=== PATIENT | male | born 1995 | race Caucasian/White ===

== ENCOUNTER 2017-09-24 04:28 | Emergency (ER) | payer BC, OTHER ==
[~2017-09-24] VITALS: Ht 195.6 cm; Wt 72.8 kg
[2017-09-24 04:37] VITALS: TEMP 36.7; Ht 195.6 cm; Wt 72.8 kg
[2017-09-24] MEDS ORDERED: XYLOCAINE 1%/SOD BICARB 20 ML VIAL INFIL ONE (04:45)
[2017-09-24 05:59] VITALS: BP 135/84; PULSE 99; O2SAT 96
[2017-09-24] MEDS ORDERED: CEPH500C2 PO (06:07)
[2017-09-24] MEDS ORDERED: CEPHALEXIN 500MG HOME PACK 1 EA BTL PO ONE (06:15)
--- NOTE | 2017-09-24 06:46 | EMERGENCY ROOM VISIT NOTE ---
History First contact with patient: 04:37 Chief Complaint: LACERATION/CUT (SUT/DERMABOND) Stated Complaint: BLEEING EAR-HIT IN THE HEAD Nursing Triage Summary: left ear Laceration. History of Present Illness The patient is a 22 year old male who presents to the Emergency Room with complaints of head injury who has been drinking tonight who sustained a left earlobe laceration when he slipped and fell hitting his head on the banister. Tetanus is current. Patient denies drug use, loss of consciousness, neck pain, facial pain, dental pain, chest pain, dyspnea, abdominal pain or any other medical complaints. Review of Systems An 10 system review of systems was completed with positives and pertinent negatives listed in the HPI. Past Medical/Surgical History None Social History Smoking Status: Never Smoker Smokeless Tobacco Use: No Alcohol Use: occasionally Drug Use: none Marital Status: in relationship Current/Historical Medications Scheduled Cephalexin Monohydrate (Keflex), 500 MG PO QID Physical Exam Vital Signs Date Time Temp Pulse Resp B/P (MAP) Pulse Ox O2 Delivery O2 Flow Rate FiO2 09/24/17 05:59 99 16 135/84 96 Room Air 09/24/17 04:37 36.7 116 20 135/84 95 Room Air Physical Exam PHYSICAL EXAM: VITALS: Vitals are noted on the nurse's note and reviewed by myself. Vital signs stable. GENERAL: Pleasant male with EtOH odor, in no acute distress, nondiaphoretic, well-developed well-nourished. SKIN: Left earlobe laceration is jagged to the intratragic notch with skin avulsion, the rest of skin was without obvious lacerations or abrasions. Capillary reflex less than 2 seconds. HEAD: Normocephalic atraumatic. EARS: External auditory canals clear, tympanic membranes pearly crandall without erythema or effusion bilaterally. No hemotympanums. No garcia sign. No mastoid tenderness. EYES: Pupils equal round and reactive to light and accommodation. Conjunctivae with mild injection, sclerae without icterus. Extraocular movements intact. NOSE: Patent, turbinates without inflammation or discharge. No sinus tenderness. No septal hematoma or bleeding. FACE: No facial bone tenderness. Full range of motion of the jaw without tenderness. MOUTH: Mucous membranes moist. Pharynx without erythema or exudate. Uvula midline. Airway patent. Tongue does not deviate. NECK: Supple without nuchal rigidity. Cervical spine is nontender. Full range of motion of the neck without tenderness. No JVD. HEART: Regular rate and rhythm without murmurs gallops or rubs. LUNGS: Clear to auscultation bilaterally without wheezes, rales or rhonchi. No dullness to percussion. No retractions or accessory muscle use. ABDOMEN: Positive bowel sounds x 4. Normal tympanic percussion. Soft, nontender, without masses or organomegaly. No guarding or rebound tenderness. MUSCULOSKELETAL: No tenderness of the thoracic or lumbar spine. Full range of motion without tenderness to palpation in all extremities. Normal gait. NEURO: Patient was alert and oriented to person place and time. Normal Mini- Mental status exam. Normal sensation to light and sharp touch. Cerebellar function intact. No focal neurological deficits. Medical Decision & Procedures Medications Administered Medications (Trade) Dose Ordered Sig/Dann Route Start Time Stop Time Status Last Admin Dose Admin Cephalexin Monohydrate (Keflex 500MG Home Pack) 1 homepack NOW ONCE PO 09/24/17 06:15 09/24/17 06:16 DC 09/24/17 06:18 1 HOMEPACK Procedure Location: Left earlobe through the auricle through the intertragic notch Total length: 3 cm, jagged Complexity: Complex Verbal consent was obtained after the risks and benefits were explained, including but not limited to bleeding, scarring, infection, pain, and bone/joint /nerve damage. At this time, the risks of the procedure are less than the risks of NOT performing the procedure. A time out was taken and the correct patient and site identified. The skin was prepped with betadine. The target area was anesthetized with 2 ml of 1% lidocaine without epinephrine. Copious irrigation was performed using NSS. The skin was re-prepped with betadine and a sterile field set. The wound was explored for foreign bodies and none found. Examination revealed no injury to deep structures such as tendons, bone, or significant blood vessels. Debridement was not performed. The wound edges were approximated using 10, 6-0 simple interrupted nylon sutures. Hemostasis and excellent approximation was achieved. Antibacterial ointment and a sterile compression dressing applied. Detailed wound care instructions and signs and symptoms of infection reviewed with the pt/girlfriend. No complications and the patient tolerated the procedure well. Patient and family were explained on how to do the dressing daily. ED Course Prior records/ancillary studies reviewed. Triage Nursing notes reviewed. Additional history obtained from friend. The patient's history was concerning for traumatic head injury Differential diagnosis: Etiologies such as concussion, contusion, fracture, subdural hematoma, epidural hematoma, intraparenchymal hemorrhage, as well as other traumatic pathologies were entertained. Physical examination findings: As above. ER treatment provided: Laceration repaired as above, Keflex On reassessment the patient felt better. Diagnostics interpreted by me: Imaging studies: Head CT negative for intracranial bleed per radiology Consultation: A consultation was placed with the plastic specialist, Dr. Mitchell. The case was discussed and diagnostics were reviewed. The patient will follow up in her office in the next few days. It appears the patient has a head injury who is intoxicated with an extensive earlobe laceration. CT was negative for acute findings. Laceration was repaired as above. Patient was strongly encouraged to follow-up plastics for the extensive ear laceration almost to the extent of the ear canal. He is advised to take antibiotics as directed and he was counseled on daily compression dressing changes. He is advised to follow-up plastics the next few days here in the ER sooner for fevers, headaches, confusion, worsening sinus symptoms or as needed. He was counseled on head injury signs and symptoms and given information the concussion clinic. Case is reviewed with my attending who also saw the earlobe laceration. By the evaluation outlined above emergent etiologies such as fracture, subdural hematoma, epidural hematoma, intraparenchymal hemorrhage, as well as others were deemed relatively unlikely. The pt informed about the findings as listed above. All questions were answered and pleased with the treatment. Return instructions were outlined and the patient was discharged in stable condition. Outpatient Prescription Management: Keflex Referral: The patient was referred to plastics for follow-up in 2 to 3 days for a recheck of the current condition. Case reviewed with my attending The chart was completed utilizing [employer] voice recognition software. Grammatical errors, random word insertions, pronoun errors, and incomplete sentences are an occassional consequence of this system due to software limitations, ambient noise, and hardware issues. Any formal questions or concerns about the content, text, or information contained within the body of this dictation should be directly addressed to the physician sales assistant entertainment and media for clarification. Medical Decision As above Head Trauma GCS Score: 15 Medication Reconcilliation Current Medication List: was personally reviewed by me Blood Pressure Screening Patient's blood pressure: Normal blood pressure Impression Primary Impression: Laceration of left earlobe Additional Impression: Head injury Departure Information Dispostion Home / Self-Care Condition GOOD Prescriptions Cephalexin Monohydrate (KEFLEX) 500 Mg Cap 500 MG PO QID for 6 Days, #24 CAP Prov: Kanika Weaver ., BROOK 09/24/17 Referrals Chayo Mitchell MD Forms HOME CARE DOCUMENTATION FORM, IMPORTANT VISIT INFORMATION Patient Instructions My [facility], ED Head Injury Closed, ED Laceration All Additional Instructions Head injury: Read head injury handout and return for any symptoms. Tylenol 1000 mg as needed for pain (Maximum 3000 mg Tylenol in 24 hr period). Avoid alcohol and contact sports/activities for one week and follow up with family doctor prior to returning to these activities if still symptomatic. Ice and elevate head. If your symptoms persist more than a week then follow up with the concussion clinic. Call [phone]. Return to ER sooner for headache, fevers, confusion, worsening signs or symptoms or as needed. Laceration: Apply bacitracin with compression dressing daily as shown in the ER for the next 5 days. Remove the bandage daily, then shower and wash with warm soapy water then dry and then reapply the dressing. Keep wound clean and dry. Do not allow any crusting or dried blood to accumulate on sutures. If this occurs, use a 1:1 solution of hydrogen peroxide/ water on a Q-tip to clean the wound. Suture removal in 7-8 days. Return sooner for any signs of infection (increasing redness, swelling, drainage). Ice and elevate for swelling and pain. Keep covered when in sun until sutures removed then SPF 50 or higher for one year. Vitamin E oil if desired two weeks after suture removal for reduction of scar. Cephalexin(Keflex) 500mg: Take one pill four times daily for 7 days. All antibiotics can cause diarrhea. If this occurs and you feel worse or it does not resolve in 1-2 days follow up with your doctor or return to the Emergency Department as this could be signs of serious underlying problems. Any medication can cause an allergic reaction, stop the pills immediately and return to the ER for rash, hives, breathing difficulties, or swelling. Rest and drink plenty of fluids. Continue current medications. Return to the ER for severe pain, persistent fevers, spreading redness, or any worsening of your condition. Follow up with your primary physician within 2-3 days for a recheck of the current condition. Call plastic surgery today to make follow-up appointment within the next few days. Problem Qualifiers Primary Impression: Laceration of left earlobe Encounter type: initial encounter Qualified Codes: S01.312A - Laceration without foreign body of left ear, initial encounter
--- NOTE | 2017-09-24 07:47 | DIAGNOSTIC IMAGING REPORT ---
HEAD WITHOUT CONTRAST (CT) CLINICAL HISTORY: 22 years-old Male presenting with fall, head injury, ETOH, injured the left side of the head, left ear bleeding. TECHNIQUE: Multidetector CT imaging of the head was performed without the use of intravenous contrast. IV contrast: None. A dose lowering technique was used consistent with the principles of ALARA (as low as reasonably achievable). COMPARISON: None. CT DOSE (mGy.cm): The estimated cumulative dose is 614.27 mGy.cm. FINDINGS: Magistrate topogram: Unremarkable. Ventricles and sulci normal in size. Brain parenchyma normal in appearance with preserved crandall-white differentiation. No mass effect or midline shift. No hemorrhage or acute territorial infarct. No extra-axial fluid collection. Paranasal sinuses and mastoid air cells clear. Calvarium intact. IMPRESSION: 1. No acute intracranial abnormality. Electronically signed by: Eren Espinosa M.D. 09/24/2017 7:45 AM Dictated Date/Time: 09/24/2017 6:52 AM
== END 2017-09-24 06:25 | disposition home or self-care (01) ==
LOC: C.EDB 04:30 → C.EDA 06:25
DX: S01.312A Laceration without foreign body of left ear, initial encounter (principal); S09.90XA Unspecified injury of head, initial encounter; W19.XXXA Unspecified fall, initial encounter